=== PATIENT | female | born 1975 | race Caucasian/White ===

== ENCOUNTER 2022-05-20 13:40 | Inpatient (IN) | payer OTHER, SELFPAY ==
[2022-05-20] VITALS (7 sets, daily range): BP systolic 110–135; BP diastolic 61–93; PULSE 87–114; RESP 16–17; TEMP 36.3–37.2; O2SAT 97–100; BMI 29.2; BMI 23.8
--- NOTE | 2022-05-20 14:25 | EKG12_ITS ---
Test Reason : SUBS ABUSE Blood Pressure : / mmHG Vent. Rate : 107 BPM Atrial Rate : 107 BPM P-R Int : 128 ms QRS Dur : 084 ms QT Int : 330 ms P-R-T Axes : 073 031 018 degrees QTc Int : 440 ms Sinus tachycardia Nonspecific T wave abnormality Abnormal ECG Confirmed by OPAL LAMB, ANITRA ([id number]), technical editor SHANDA BENITEZ ([id number]) on 05/21/2022 2:43:36 PM Referred By: Confirmed By:ANITRA JOSEPH MD
--- NOTE | 2022-05-20 14:26 | EX.ED.SAOD ---
HPI History of Present Illness Chief Complaint: Substance Abuse Narrative Narrative: 46-year-old female, history of chronic back pain, employed as an COMPONENTS ENGINEER presents for opiate detox. She states she sees pain management and he is to take [place]/hydrocodone 7.5 mg 3 times a day. She states that she talk to her pain management doctor about weaning off of them and was supposed to take 7.5 mg twice a day then 5 mg at night. However, she finds herself looking at her watch and becoming jittery, trying to see when she can take her next dose. She has been overusing her prescriptions and is already out of the 7.5 mg because she has been taking them at least 5 times a day. She does not get another prescription refill for another 3 or 4 days, and states she is almost out. She started having detox and withdrawal symptoms on Thursday with diarrhea, crampy abdominal pain, and jitteriness. While she had mentioned that when she runs out, she may get suicidal thoughts because she wants to obtain more narcotics, she is not actively suicidal with a plan. PFSH PFSH Allergy/AdvReac Type Severity Reaction Status Date / Time codeine Allergy Hives Verified 05/20/22 13:58 Penicillins [PCN] Allergy Hives Verified 05/20/22 13:58 Social History Smoking Status: Never smoker ROS ROS ED ROS Narrative Constitutional: No fever, no chills. HEENT: No sore throat. No neck pain. No loss of vision. No rhinorrhea. Cardiovascular: No chest pain. No palpitations. No pedal edema. Respiratory: No cough, no shortness of breath. Abdominal: Diffuse, crampy abdominal pain. Positive nausea. No vomiting. Positive diarrhea Genitourinary: No dysuria. No hematuria. Musculoskeletal: No myalgias. No arthralgias. Neurologic: No headaches. No dizziness. No lightheadedness. Feeling jittery. Tremors. Skin: No rash. No change in color. Psychiatric: No depression. No anxiety. Suicidal thoughts when runs out of medication. EXAM Physical Exam Narrative Exam Narrative: Afebrile. Vital signs noted. HEENT: Normocephalic. Atraumatic. PERRL, EOMI. Neck soft and supple. No point tenderness or step off. Cardiovascular: Positive tachycardia no murmurs, rubs, or gallops appreciated. Respiratory: No tachypnea. Lungs clear to auscultation bilaterally. Gastrointestinal: Abdomen soft, nontender, with normoactive bowel sounds. No rebound or guarding. Neurological: Awake. Alert. Nonfocal, nonlateralizing. Tremors of bilateral lower extremities at rest, more of a nervous tic. Skin: No rash. Normal color. No pallor. Musculoskeletal: No pedal edema. Full range of motion extremities. Psychiatric: Denies suicidal ideation. Const Vital Signs: 05/20/22 13:41 05/20/22 14:50 05/20/22 15:05 Temperature 97.9 F Temperature Source Temporal Pulse Rate 113 H Respiratory Rate 16 17 Blood Pressure 135/93 H Blood Pressure Mean 107 Pulse Ox 98 97 Oxygen Delivery Method Airvo Room Air MDM MDM MDM Narrative Medical decision making narrative: As she had triggered suicide precautions in triage because of her voicing suicidal ideation when she runs out of medication, she was evaluated by case management/social work. It was not felt that she is actively suicidal and that is more situational when she runs out of her medication. Medical screening labs will be obtained. She states that she has already spoken with 180 and has a counselor lined up, but is here for detox for a few days. I obtained an EKG because of her tachycardia and interpreted it. Which shows sinus tachycardia in the 107 bpm without ectopy or acute ST changes. No STEMI. CBC was obtained and reviewed and she has normal white count of 6.5, hemoglobin normal at 12.9, platelet count normal at 259. I discussed the patient with Dr. Nam Ospina for admission to the medical surgical floor. Disposition is admit in stable condition. Lab Data Attestation: I reviewed the patient's lab results. Labs: Laboratory Results - last 24 hr 05/20/22 14:52 WBC 6.5 RBC 4.44 Hgb 12.9 Hct 39.5 MCV 89.0 MCH 29.1 MCHC 32.7 RDW Std Deviation 43.9 RDW Coeff of Aj 13.4 Plt Count 259 MPV 10.8 Immature Gran % (Auto) 0.300 Neut % (Auto) 59.4 Lymph % (Auto) 28.8 [place] % (Auto) 5.5 Eos % (Auto) 5.1 H Baso % (Auto) 0.9 Absolute Neuts (auto) 3.9 Absolute Lymphs (auto) 1.87 Nucleated RBC % 0 Discharge Plan Dx/Rx/DC Orders Clinical Impression: Opiate dependence, Desire for detoxification, Chronic back pain Disposition Disposition: Acute Care Hospital [facility]
[2022-05-20 14:59] LABS: Absolute Lymphocyte Count 1.87 X10^3/uL (0.83-4.51); Absolute Neutrophil Count 3.9 X10^3/uL (2.0-7.7); Basophil# 0.06 X10^3/uL; Basophil% 0.9 % (0-1); Eosinophil# 0.33 X10^3/uL; Eosinophils% 5.1 % (0-5); Hematocrit 39.5 % (37-47); Hemoglobin 12.9 g/dL (12.0-15.0); Lymphocyte # 1.87 X10^3/ul (0.83-4.51); Lymphocyte % 28.8 % (19-41); Mean Corp Hgb Conc 32.7 g/dL (32-36); Mean Corpuscular Hgb 29.1 pg (27.0-32.0); Mean Platelet Vol. 10.8 fl (6.2-12.0); Monocyte# 0.36 X10^3/uL; Monocyte% 5.5 % (0-10); NRBC Flagged by Analyzer 0 % (0-5); Neutrophil # 3.85 X10^3/uL (2.7-7.7); Neutrophil % 59.4 % (47-70); Platelet Count 259 K/mm3 (150-450); RBC Distribution Width CV 13.4 % (11.6-14.6); RBC Distribution Width SD 43.9 fl (35.1-43.9); Red Blood Count 4.44 M/mm3 (4.2-5.4); White Blood Count 6.5 K/mm3 (4.4-11.0)
[2022-05-20 15:14] LABS: ALB/GLOB Ratio 0.8 RATIO (0.9-2.4); AST(SGOT) 20 U/L (15-37); Alanine Aminotransfer ALT/SGPT 30 U/L (13-56); Albumin, Serum 3.3 g/dL (3.2-5.0); Alkaline Phosphatase 67 U/L (45-117); Anion Gap 9 (5-15); BUN 17 mg/dL (7-18); BUN/Creat Ratio 17.7 RATIO (10-20); Calcium,Total 8.6 mg/dL (8.5-10.1); Chloride 105 mmol/L (98-107); Creatinine, Serum 0.96 mg/dL (0.55-1.02); EST Glomerular Filtration Rate 67 mL/min (>60); Est Glom Filt Rate - Afr Amer 81 mL/min (>60); Estimated Creatinine Clearance 61.86 ml/min; Globulin 3.9 g/dL (2.2-4.2); Glucose 89 mg/dL (74-106); Potassium 3.5 mmol/L (3.5-5.1); Protein, Total 7.2 g/dL (6.4-8.2); Sodium Level 139 mmol/L (136-145)
--- NOTE | 2022-05-20 15:22 | CM.ED ---
? Social Work Psychiatric Assessment Reason for consult: Mental Health Informant(s): Patient and patient?s . SW gave the consent to speak to her in the presence of her , Issa. Chief Complaint: Patient said that she came to the ED as she was referred to the [facility]AMP program at [facility] by her counselor, Elsy Mcgee. Patient said that she has had ?terrible back pain? and been on hydrocodone for 3 years and subsequently has been on oxycodone. Patient said ?now I am abusing it and I don?t want to live like this?. Patient said that she has no more refills after the and she wants help to be ?done with this demon?. Patient said that she fantasizes about how to steal oxycodone and get more. Patient said that she has stolen oxycodone from her ?s parents and ?I don?t want to be a junkie?. 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 ? Marital/Social History: ? Living Situation: Patient resides in a house with her and 4 children (2 of the children are older and live outside the home) Support/Resources: Patient said that her supports are her husbands and 2 sisters and father. Patient said ?I have a good support team?. History: ?None Education and Employment History: Patient graduated from high school. 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 Patient said that she is ?undiagnosed dyslexia? and also has ADHD. 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 Mental Health Treatment/History: Patient reports she has a counselor, Elsy, who she sees weekly and has met 2times. Patient has seen a psychiatrist in the past. Patients PCP Connie Pratt prescribes Buprionion 150 mg, Vraylor and Trintellex. Patient reports one psych hospitalization in [facility] in 1999 following a suicide attempt. Triggers/Stressors: Patient reports no other issues or stressors except for the oxycodone abuse Coping Skills: Patient said that she ?keeps busy? and she ?leaves the house, shops with her sister and cleans the house?. Abuse Issues:? Denied ? Substance Abuse Hx:? Patient reports she has begun to take CBD oil, not prescribed, for 3x to help with the pain. Patient said that she has not taken the CBD oil daily. Denied any other drug or alcohol use. Risk to Self/Others: ? Suicidal:? Patient reports she has had thought about ?I want to be gone, want to disappear and don?t want to be here? when she can?t get the oxycodone. Patient reports past thoughts of ?I just want to be or when I don?t have the oxycodone?. Patient reports no current SI. Patient reports no plan regarding SI. Patient voiced that her SI thoughts are related to her not having the oxycodone and feeling of frustration. Patient said that she is future oriented as she is looking forward to being in a Bible study and bonding with her . Patient stated that her kendell is a protective factor. Patient said that she is not suicidal as ?too many people depend on me?. Patient said she had one suicide attempt in 1999, when she was hospitalized, as she had overdosed on pills. Comments: ? Homicidal:? denied Comments: ? Violence:? denied Comments: Mental Status Exam: ??? Orientation:? x4 ??? Memory:? Intact Appearance/General Behavior:? Disheveled but clean Mood/Affect: Anxious, moving throughout the assessment Communication Pattern:? Responds to questions Thought Process:? appropriate. General Intellectual Functioning:??? Average ? Judgment: Fair Insight:? Good Patient voiced no current SI and no plan. Patient voiced protective factors including her kendell and that ?too many people depend on me?. Patient voiced thoughts of SI when she was unable to secure her oxycodone. Patient also voiced frustration with her drug seeking behavior. Patient voices she will let staff know if she feels SI. At this time patient does not need inpatient psych or a sitter. SW updated MD Khan and agreed that patient does not need sitter or inpatient psych hospitalization. Plan: Detox through Ramp program Mayra CIFUENTES
[2022-05-20 15:27] LABS: Amphetamine Urine VISTA NEGATIVE (<1000 ng/mL); Barbiturate Urine VISTA NEGATIVE (< 200 ng/mL); Benzodiazepine Urine VISTA NEGATIVE (< 200 ng/mL); Cocaine Urine VISTA NEGATIVE (< 300 ng/mL); Ecstacy Urine VISTA POSITIVE (< 500 ng/mL); Methadone Urine VISTA NEGATIVE (< 300 ng/mL); PCP Urine VISTA NEGATIVE (< 25 ng/mL); THC Urine VISTA POSITIVE (< 50 ng/mL); Vista UDS pH Range 5
[2022-05-20 15:36] LABS: Alcohol, Blood (Medical)-Serum < 3.0 mg/dL
[2022-05-20 15:45] LABS: Internal QC Validated? YES +Cl - CLEAR BKGD; Pregnancy, Serum, hCG Quali. NEGATIVE Negative
--- NOTE | 2022-05-20 16:18 | HP.PCM.HOS_ITS ---
HPI - General General Date of Admission: 05/20/22 Date of Service: 05/20/22 Chief Complaint: Acute opiate withdrawal, opiate addiction HPI Narrative HANNAH EDOUARD, is a 46 F who presents to the emergency room at [facility] requesting services for opiate addiction and opiate withdrawal. Patient is being seen by pain management in [facility] and takes 7.5 mg Vicodin on a routine basis, she has been overusing the Vicodin for quite some time and has decided that she wants to stop all narcotics. Patient has a history of low back pain which is chronic, she has stated to me that this has been looked into and it does not appear that she needs any surgery to correct any problem that would cause her back pain. Patient does state that she takes her daughters ADHD medications gjygufzrhmon-[id number]-cty denies any chronic alcohol use, she denies any use of street drugs. Patient is in the ER with her at the time my examination. Patient states she has a history of gastric bypass in the past and she was told not to take any nonsteroidal anti-inflammatory medications. At the time my examination, patient is complaining of extreme nervousness, she is fidgeting during my exam and she answers questions appropriately however, she does not appear to be confused or diaphoretic. Patient had labs drawn in the emergency room, CBC was unremarkable, chemistry panel was unremarkable, and talk screen was positive for urine opiates, ecstasy, and cannabinoids. Patient will be admitted to [place] [id number], she will be seen by addiction social sciences department chair, orders will be entered using the opiate detox order set and general order set for addiction patients. [facility] Medical History (Updated 05/20/22 @ 15:39 by Pooja Eaton) Anxiety Asthma Back pain Depression Hernia Nausea & vomiting Spondylosis Home Medications bupropion HCl 150 mg tablet,12 hr sustained-release 150 mg PO BID mood 05/20/22 [History Last Taken 05/20/22] cariprazine 1.5 mg capsule (Vraylar) 1.5 mg PO DAILY mood 05/20/22 [History Last Taken 05/20/22] drospiren-e.estrad-l.mefol 3 mg-0.02 mg-0.451 mg(24)/0.451 mg(4)tablet 1 tab PO QHS control 05/20/22 [History Last Taken 05/19/22] methocarbamol 500 mg tablet 500 mg PO TID PRN PRN Spasms 05/20/22 [History Last Taken 05/20/22] ondansetron 4 mg disintegrating tablet 4 mg PO Q6H PRN PRN Nausea 05/20/22 [History Last Taken 05/20/22] pregabalin 50 mg capsule 50 mg PO BID back pain 05/20/22 [History Last Taken 05/20/22] vortioxetine 10 mg tablet (Trintellix) 10 mg PO DAILY mood 05/20/22 [History Last Taken 05/20/22] Allergy/AdvReac Type Severity Reaction Status Date / Time codeine Allergy Hives Verified 05/20/22 13:58 Penicillins [PCN] Allergy Hives Verified 05/20/22 13:58 Surgical History (Updated 05/20/22 @ 15:32 by Pooaj Eaton) Gastric bypass status for obesity History of cholecystectomy Social History Smoking Status: Never smoker ROS ROS Narrative Patient complains of extreme restlessness and nervousness Constitutional Constitutional: Reports malaise; Denies anorexia, change in weight, chills, fever(s), night sweats or weakness Eyes Eyes: Denies blurry vision, change in vision, discharge from eye(s) or eye pain ENT HEENT: Denies dysphagia, ear pain or headache(s) Cardiovascular Cardiovascular: Denies chest pain, claudication, dyspnea on exertion, edema, lightheadedness, orthopnea, palpitations or paroxysmal nocturnal dyspnea Respiratory/Chest Respiratory/Chest: Denies cough, dyspnea, hemoptysis, productive cough, shortness of breath at rest or shortness of breath with exertion Gastrointestinal Gastrointestinal: Denies abdominal pain, coffee ground emesis, constipation, diarrhea, dyspepsia, hematemesis, hematochezia, melena, nausea or vomiting Genitourinary Genitourinary: Denies difficulty urinating, dysuria, hematuria, nocturia, u rinary frequency, urinary hesitancy, urinary incontinence or urinary urgency Musculoskeletal Musculoskeletal: Reports back pain and myalgias; Denies joint pain, joint stiffness, joint swelling or neck pain Neurologic Neurologic: Denies abnormal gait, abnormal speech, confusion, disequilibrium, dizziness, focal weakness, headache(s), loss of vision, numbness, other visual disturbances, paresthesias, syncope or tingling Psychiatric Psychiatric: Reports anxiety and other Details: Patient complains of extreme restlessness and nervousness at this time, she has a history of chronic depression and takes daily medication. ; Denies cognitive impairment, depression, irritability, mood swings or suicidal ideation Endocrine Endocrinology: Denies change in body appearance, cold intolerance, excessive sweating, heat intolerance, polydipsia or polyuria Hematologic/Lymphatic Hematologic/Lymphatic: Denies none, anemia, easy bleeding, easy bruising or lymphadenopathy Allergic/Immunologic Allergic/Immunologic: Denies rhinitis, urticaria, eczemia or asthma Vital Signs Vital Signs Vital Signs: 05/20/22 13:41 05/20/22 14:50 05/20/22 15:05 Temperature 97.9 F Temperature Source Temporal Pulse Rate 113 H Respiratory Rate 16 17 Blood Pressure 135/93 H Blood Pressure Mean 107 Pulse Ox 98 97 Oxygen Delivery Method Airvo Room Air Weight Weight: 74.843 kg Body Mass Index (BMI) 29.2 Physical Exam Narrative Patient is alert and appropriate, she appears extremely restless and nervous, she is not agitated, she is appropriate when asked questions Const alert, oriented x3, no apparent distress, average body habitus and healthy appearing General Appearance: cooperative, well kempt and well developed Orientation / Consciousness: awake, oriented to person, oriented to place and oriented to time HEENT normocephalic, head/scalp atraumatic, hearing grossly normal bilaterally and moist oral mucous membranes Eyes PERRL, EOMs intact bilaterally and conjunctivae normal Neck supple, no JVD, thyroid normal and no carotid bruits General: trachea midline Resp normal respiratory effort, no retractions, no use of accessory muscles and clear to auscultation bilaterally Auscultation: Negative for rales, rhonchi or wheezes Cardio regular rate, regular rhythm, S1 normal heart sound, S2 normal heart sound, no murmurs, no rub and no gallops GI normal to inspection, nondistended, normoactive bowel sounds, soft to palpation, non-tender and non-distended Extremity no clubbing, cyanosis or edema Skin no rashes or lesions noted General Skin Exam: no breakdown Neuro oriented x3, CN's II-XII intact bilaterally, no focal motor deficits and no sensory deficits noted Sensorium / Orientation: awake, alert, oriented to person, oriented to place and oriented to time Speech: speech normal Psych affect normal Results Lab / Micro Data Result Diagrams: 05/20/22 14:52 05/20/22 14:52 Labs: Laboratory Results - last 24 hr 05/20/22 14:52: WBC 6.5, RBC 4.44, Hgb 12.9, Hct 39.5, MCV 89.0, MCH 29.1, MCHC 32.7, RDW Std Deviation 43.9, RDW Coeff of Aj 13.4, Plt Count 259, MPV 10.8, Immature Gran % (Auto) 0.300, Neut % (Auto) 59.4, Lymph % (Auto) 28.8, [place] % (Auto) 5.5, Eos % (Auto) 5.1 H, Baso % (Auto) 0.9, Absolute Neuts (auto) 3.9, Absolute Lymphs (auto) 1.87, Nucleated RBC % 0 05/20/22 14:52: Sodium 139, Potassium 3.5, Chloride 105, Carbon Dioxide 25.0, Anion Gap 9, BUN 17, Creatinine 0.96, Estim Creat Clear Calc 61.86, Est GFR ( RD) Af Amer 81, Est GFR (MDRD) Non-Af 67, BUN/Creatinine Ratio 17.7, Glucose 89, Calcium 8.6, Total Bilirubin 0.30, AST 20, ALT 30, Alkaline Phosphatase 67, Total Protein 7.2, Albumin 3.3, Globulin 3.9, Albumin/Globulin Ratio 0.8 L 05/20/22 14:52: Ethyl Alcohol < 3.0 05/20/22 14:52: Serum , Qual NEGATIVE 05/20/22 15:03: Urine Opiates Screen POSITIVE H, Urine Methadone Screen NEGATIVE, Ur Barbiturates Screen NEGATIVE, Ur Phencyclidine Scrn NEGATIVE, Ur Amphetamines Screen NEGATIVE, MDMA (Ecstasy) Screen POSITIVE H, U Benzodiazepines Scrn NEGATIVE, Urine Cocaine Screen NEGATIVE, U Cannabinoids Screen POSITIVE H, Ur Drug Screen Comment Assessment & Plan Assessment/Plan (1) Desire for detoxification: PLAN: Plan 1. Acute opiate withdrawal-patient will be admitted to [facility] 3, orders were entered using the opiate detox order sets. Patient will be seen by addiction social sciences department chair concerning follow-up as an outpatient. #2 chronic opiate abuse-patient will need follow-up upon discharge from the hospital, she will be seen by addiction social sciences department chair #3 chronic back pain-this appears to be musculoskeletal in nature, she will need follow-up with her pain management physician for further care upon discharge #4 chronic depression-patient will remain on her present medications #5 Positive MDMA on tox screen-I do not know if this is related to her use of methylphenidate from her daughter's medication, patient denied any illicit drug abuse such as street drug usage Total clinical time spent by myself addressing the patient's medical issues, reviewing the patient's medical data, and collaborating with patient's care team: 55 minutes Charges/Coding Visit Charges Inpatient E&M: 25148 Init Hosp L2
[2022-05-20] MEDS: Methocarbamol 750 MG Tablet 1500 MG PO (17:56)
[2022-05-20] MEDS: Buprenorphine HCl 2 MG TAB.SUBL SL (17:56)
[2022-05-20] MEDS: cloNIDine HCl 0.1 MG Tablet PO (17:56)
[2022-05-20] MEDS: Ondansetron 8 MG Tablet PO (21:29)
[2022-05-20] MEDS: Acetaminophen 500 MG Tablet PO (21:29)
[2022-05-20] MEDS: Pregabalin 50 MG Capsule PO (21:30)
[2022-05-20] MEDS: traZODone 100 MG Tablet PO (21:30)
[2022-05-20] MEDS: buPROPion (SR) 150 MG Tablet.SA PO (21:30)
[2022-05-20] MEDS: hydrOXYzine PAM 25 MG Capsule 50 MG PO (23:08)
[2022-05-21] MEDS: Buprenorphine HCl 2 MG TAB.SUBL SL ×3 (02:00→17:54)
[2022-05-21 05:00] VITALS: BP 89/52; PULSE 71; RESP 18; TEMP 36.3; O2SAT 94
[2022-05-21] MEDS: Ondansetron 8 MG Tablet PO ×2 (05:36→14:34)
[2022-05-21] MEDS: Methocarbamol 750 MG Tablet 1500 MG PO ×2 (05:37→17:59)
[2022-05-21] MEDS: Acetaminophen 500 MG Tablet PO ×3 (05:37→17:59)
--- NOTE | 2022-05-21 07:37 | PN.HOSP_ITS ---
Subjective Subjective Feels ill. Objective Data Objective Data Vital Signs: Vital Signs Temp Pulse Resp BP Pulse Ox O2 Del Method 36.3 C L 71 18 89/52 L 94 Room Air 05/21/22 05:00 05/21/22 05:00 05/21/22 05:00 05/21/22 05:00 05/21/22 05:00 05/21/22 05:00 Oxygen Delivery Method Room Air Weight: 61.144 kg Body Mass Index (BMI) 23.8 Intake & Output: Intake and Output for Last 24 Hours 05/19/22 05/20/22 05/21/22 23:59 23:59 23:59 Intake Total 1000 / 1000 Balance 1000 / 1000 Lab / Micro Data Result Diagrams: 05/20/22 14:52 05/20/22 14:52 Labs: Laboratory Results - last 24 hr 05/20/22 14:52: WBC 6.5, RBC 4.44, Hgb 12.9, Hct 39.5, MCV 89.0, MCH 29.1, MCHC 32.7, RDW Std Deviation 43.9, RDW Coeff of Aj 13.4, Plt Count 259, MPV 10.8, Immature Gran % (Auto) 0.300, Neut % (Auto) 59.4, Lymph % (Auto) 28.8, [place] % (Auto) 5.5, Eos % (Auto) 5.1 H, Baso % (Auto) 0.9, Absolute Neuts (auto) 3.9, Absolute Lymphs (auto) 1.87, Nucleated RBC % 0 05/20/22 14:52: Sodium 139, Potassium 3.5, Chloride 105, Carbon Dioxide 25.0, Anion Gap 9, BUN 17, Creatinine 0.96, Estim Creat Clear Calc 61.86, Est GFR (MDRD) Af Amer 81, Est GFR (MDRD) Non-Af 67, BUN/Creatinine Ratio 17.7, Glucose 89, Calcium 8.6, Total Bilirubin 0.30, AST 20, ALT 30, Alkaline Phosphatase 67, Total Protein 7.2, Albumin 3.3, Globulin 3.9, Albumin/Globulin Ratio 0.8 L 05/20/22 14:52: Ethyl Alcohol < 3.0 05/20/22 14:52: Serum , Qual NEGATIVE 05/20/22 15:03: Urine Opiates Screen POSITIVE H, Urine Methadone Screen NEGATIVE, Ur Barbiturates Screen NEGATIVE, Ur Phencyclidine Scrn NEGATIVE, Ur Amphetamines Screen NEGATIVE, MDMA (Ecstasy) Screen POSITIVE H, U Benzodiazepines Scrn NEGATIVE, Urine Cocaine Screen NEGATIVE, U Cannabinoids Screen POSITIVE H, Ur Drug Screen Comment Physical Exam Const alert and no apparent distress HEENT head/scalp atraumatic and moist oral mucous membranes Psych affect normal Assessment & Plan Assessment/Plan (1) Desire for detoxification: PLAN: Acute opiate withdrawal-patient will be admitted to [place] [address], orders were entered using the opiate detox order sets. Patient will be seen by addiction manager social work concerning follow-up as an outpatient. PLAN: Plan Chronic conditions: * chronic opiate abuse-patient will need follow-up upon discharge from the hospital, she will be seen by addiction manager social work * chronic back pain-this appears to be musculoskeletal in nature, she will need follow-up with her pain management physician for further care upon discharge * chronic depression-patient will remain on her present medications * Positive MDMA on tox screen-I do not know if this is related to her use of methylphenidate from her daughter's medication, patient denied any illicit elijah g abuse such as street drug usage Charges/Coding Visit Charges Inpatient E&M: 27791 [facility] Hosp L1
[2022-05-21 09:26] VITALS: BP 84/51; PULSE 80; RESP 18; TEMP 37.7; O2SAT 100
[2022-05-21] MEDS: CARIPRAZINE HCL 1.5 MG CAPSULE PO (10:52)
[2022-05-21] MEDS: VORTIOXETINE HYDROBROMIDE 10 MG TABLET PO (10:52)
[2022-05-21] MEDS: Pregabalin 50 MG Capsule PO ×2 (10:59→21:08)
[2022-05-21] MEDS: buPROPion (SR) 150 MG Tablet.SA PO ×2 (10:59→21:08)
--- NOTE | 2022-05-21 11:06 | ADDICTION ---
TW met with pt to complete ASAM, AUDIT, DUDIT, and MSE and begin D/C Planning. TW offered education about addiction in the brain and how it occurs. TW provided pt with [employer] Deconstructed book and the Addiction 101 workbook per her request. TW spent time with pt looking up her insurance information and finding an addiction treatment provider in network. TW reached out to and called [id number] doctor Yogi Block with [facility] on file for [facility]. There was no answer, TW left a VM with her work number to have [employer] return the call. Pt is interested in receiving Vivitrol, which the [facility] offers. No transportation needs noted at this time. D/C Plan will be completed once TW hears back from [employer] regarding addiction treatment services.
[2022-05-21 11:30] VITALS: BP 95/77; PULSE 87; RESP 18; TEMP 36.6; O2SAT 100
[2022-05-21 15:15] VITALS: BP 92/59; PULSE 66; RESP 16; TEMP 36.4; O2SAT 100
[2022-05-21] MEDS: hydrOXYzine PAM 25 MG Capsule 50 MG PO (17:59)
[2022-05-21 20:03] VITALS: PULSE 80
[2022-05-21 20:09] VITALS: BP 92/60; PULSE 83; RESP 12; TEMP 36.9; O2SAT 97
[2022-05-22] MEDS: hydrOXYzine PAM 25 MG Capsule 50 MG PO ×3 (01:59→19:52)
[2022-05-22] MEDS: Buprenorphine HCl 2 MG TAB.SUBL SL ×3 (01:59→17:31)
[2022-05-22 02:05] VITALS: BP 96/65; PULSE 81; RESP 18; TEMP 37.1; O2SAT 100
[2022-05-22] MEDS: Dicyclomine 10 MG Capsule 20 MG PO ×2 (02:18→19:53)
[2022-05-22] MEDS: Methocarbamol 750 MG Tablet 1500 MG PO ×3 (02:18→19:52)
[2022-05-22] MEDS: Ondansetron 8 MG Tablet PO ×3 (02:18→21:14)
[2022-05-22] MEDS: Acetaminophen 500 MG Tablet PO ×3 (07:36→19:52)
--- NOTE | 2022-05-22 07:54 | PN.HOSP_ITS ---
Subjective Subjective Feels achy all over. Feels like her throat is closing and requesting albuterol MDI. Objective Data Objective Data Vital Signs: Vital Signs Temp Pulse Resp BP Pulse Ox O2 Del Method 37.1 C 81 18 96/65 100 Room Air 05/22/22 02:05 05/22/22 02:05 05/22/22 02:05 05/22/22 02:05 05/22/22 02:05 05/22/22 02:05 Oxygen Delivery Method Room Air Weight: 61.144 kg Body Mass Index (BMI) 23.8 Intake & Output: Intake and Output for Last 24 Hours 05/20/22 05/21/22 05/22/22 23:59 23:59 23:59 Intake Total 1000 / 1000 Balance 1000 / 1000 Lab / Micro Data Result Diagrams: 05/20/22 14:52 05/20/22 14:52 Physical Exam Const alert Constitutional Narrative: uncomfortable. up in bed. non-toxic. Resp normal respiratory effort, no retractions, no use of accessory muscles and clear to auscultation bilaterally Cardio regular rate, regular rhythm, S1 normal heart sound and S2 normal heart sound GI normal to inspection, nondistended, normoactive bowel sounds, soft to palpation, non-tender and non-distended Assessment & Plan Assessment/Plan (1) Desire for detoxification: PLAN: Acute opiate withdrawal-patient will be admitted to [facility] 3, orders we re entered using the opiate detox order sets. Patient will be seen by addiction social service coordinator concerning follow-up as an outpatient. PLAN: Plan Chronic conditions: * chronic opiate abuse-patient will need follow-up upon discharge from the hospital, she will be seen by addiction social service coordinator * chronic back pain-this appears to be musculoskeletal in nature, she will need follow-up with her pain management physician for further care upon discharge * chronic depression-patient will remain on her present medications * Positive MDMA on tox screen- Charges/Coding Visit Charges Inpatient E&M: 94777 [facility] Hosp L1
[2022-05-22 08:08] VITALS: BP 99/66; PULSE 101; RESP 16; TEMP 37.2; O2SAT 94
[2022-05-22] MEDS: buPROPion (SR) 150 MG Tablet.SA PO ×2 (09:33→21:14)
[2022-05-22] MEDS: VORTIOXETINE HYDROBROMIDE 10 MG TABLET PO (09:34)
[2022-05-22] MEDS: CARIPRAZINE HCL 1.5 MG CAPSULE PO (09:34)
[2022-05-22] MEDS: Pregabalin 50 MG Capsule PO ×2 (09:36→21:15)
[2022-05-22 13:44] VITALS: BP 95/54; PULSE 88; RESP 16; TEMP 36.7; O2SAT 100
[2022-05-22 19:38] VITALS: BP 91/59; PULSE 78; PULSE 80; RESP 16; TEMP 37.1; O2SAT 100
[2022-05-22] MEDS: traZODone 100 MG Tablet PO (21:14)
[2022-05-23 05:24] VITALS: BP 95/64; PULSE 76; RESP 18; TEMP 37; O2SAT 100
[2022-05-23] MEDS: Buprenorphine HCl 2 MG TAB.SUBL SL (05:34)
[2022-05-23] MEDS: hydrOXYzine PAM 25 MG Capsule 50 MG PO (05:34)
[2022-05-23] MEDS: Methocarbamol 750 MG Tablet 1500 MG PO ×2 (05:34→13:22)
[2022-05-23] MEDS: Dicyclomine 10 MG Capsule 20 MG PO (05:35)
[2022-05-23] MEDS: Acetaminophen 500 MG Tablet PO ×2 (07:43→13:22)
[2022-05-23 07:45] VITALS: PULSE 65; RESP 18; O2SAT 100
[2022-05-23] MEDS: Albuterol 2.5 MG/3 ML VIAL.NEB. INHALATION (07:47)
[2022-05-23 08:07] VITALS: BP 102/68; PULSE 86; RESP 16; TEMP 36.6; O2SAT 92
[2022-05-23] MEDS: Pregabalin 50 MG Capsule PO (08:55)
[2022-05-23] MEDS: CARIPRAZINE HCL 1.5 MG CAPSULE PO (08:56)
[2022-05-23] MEDS: VORTIOXETINE HYDROBROMIDE 10 MG TABLET PO (08:56)
[2022-05-23] MEDS: buPROPion (SR) 150 MG Tablet.SA PO (08:56)
--- NOTE | 2022-05-23 10:05 | PCM.DC ---
Discharge Instructions Diet Discharge Diet: No restrictions Follow Up Care Please Follow Up With: [facility] Test Results: Test results from this visit will be discussed in further detail at your follow-up appointment, if applicable. Discharge Plan Admission Admit Date/Time: 05/20/22 16:11 Primary Reason for Your Visit: opiate withdrawal Attending Provider: Zeferino Smith Primary Care Provider: Zahra Pratt Consulting Providers: Nam Ospina Discharge Orders/Prescriptions Prescriptions: New hydroxyzine pamoate 25 mg Capsule 50 mg PO Q6H PRN PRN (Reason: mild anxiety) Qty: 12 0RF Continued methocarbamol 500 mg tablet 500 mg PO TID PRN PRN (Reason: Spasms) Label Comments: Take 1 tablet by mouth 3 times daily. bupropion HCl 150 mg tablet sustained-release 12 hr 150 mg PO BID Label Comments: Take 1 tablet by mouth every 12 hours. ondansetron 4 mg tablet,disintegrating 4 mg PO Q6H PRN PRN (Reason: Nausea) Label Comments: place 1 tablet on tongue and allow to dissolve every 6 hours as needed for Nausea / Vomiting. pregabalin 50 mg capsule 50 mg PO BID Label Comments: Take 1 capsule by mouth 2 times daily. drospirenone-e.estradiol-lm.FA 3-0.02-0.451 mg (24) (4) tablet 1 tab PO QHS Label Comments: TAKE 1 TABLET BY MOUTH ONCE DAILY. TAKE CONTINUOUSLY WITHOUT MENSES Trintellix 10 mg tablet 10 mg PO DAILY Label Comments: Take 1 tablet by mouth daily. Vraylar 1.5 mg capsule 1.5 mg PO DAILY Label Comments: Take 1 capsule by mouth daily. Proair Digihaler 90 mcg/actuation Aero Powdr Breath Act W/Sensor 180 mcg INHALATION Q6H PRN (Reason: Shortness Of Breath) Referrals / Follow Up: Zahra Pratt MD [Primary Care Provider] - NOT,DEFINED [Non-Staff] - Disposition Disposition (needs filled in before D/C Order can be placed): Home, Self Care
--- NOTE | 2022-05-23 11:10 | DS.PCM_ITS ---
Providers Date of Admission: 05/20/22 Primary Care Physician: Dr. Zahra Pratt MD Reason For Visit: ACUTE OPIATE WITHDRAWAL, OPIATE ABUSE Diagnosis Discharge Diagnosis (1) Desire for detoxification: Status: Acute Plan: Acute opiate withdrawal-patient will be admitted to [place] [id number], orders were entered using the opiate detox order sets. Patient will be seen by addiction social organization professor concerning follow-up as an outpatient. Plan Chronic conditions: * chronic opiate abuse-patient will need follow-up upon discharge from the hospital, she will be seen by addiction social organization professor * chronic back pain-this appears to be musculoskeletal in nature, she will need follow-up with her pain management physician for further care upon discharge * chronic depression-patient will remain on her present medications * Positive MDMA on tox screen- Medications at Discharge Home Medications bupropion HCl 150 mg tablet,12 hr sustained-release 150 mg PO BID mood 05/20/22 cariprazine 1.5 mg capsule (Vraylar) 1.5 mg PO DAILY mood 05/20/22 drospiren-e.estrad-l.mefol 3 mg-0.02 mg-0.451 mg(24)/0.451 mg(4)tablet 1 tab PO QHS control 05/20/22 methocarbamol 500 mg tablet 500 mg PO TID PRN PRN Spasms 05/20/22 ondansetron 4 mg disintegrating tablet 4 mg PO Q6H PRN PRN Nausea 05/20/22 pregabalin 50 mg capsule 50 mg PO BID back pain 05/20/22 vortioxetine 10 mg tablet (Trintellix) 10 mg PO DAILY mood 05/20/22 albuterol sulfate 90 mcg/actuation breath activated powder inhaler,sensor (Proair Digihaler) 180 mcg inhalation Q6H PRN Shortness Of Breath 05/23/22 hydroxyzine pamoate 25 mg capsule 50 mg PO Q6H PRN PRN mild anxiety #12 caps 0 05/23/22 Hospital Course Operations None Procedures None Summary of Care Provided Minutes Spent on Discharge: 28 Weight / BMI Weight Weight: 61.144 kg Body Mass Index (BMI) 23.8 ABG / Lab / Microbiology Data Result Diagrams: 05/20/22 14:52 05/20/22 14:52 D/C Instructions Discharge Diet: No restrictions Please Follow Up With: [facility] Info Meaningful Use Diagnoses (Choose all that apply): None applicable Discharge Plan Admission Admit Date/Time: 05/20/22 16:11 Primary Reason for Your Visit: opiate withdrawal Attending Provider: Zeferino Smith Primary Care Provider: Zahra Pratt Consulting Providers: Nam Ospina Discharge Orders/Prescriptions Prescriptions: New hydroxyzine pamoate 25 mg Capsule 50 mg PO Q6H PRN PRN (Reason: mild anxiety) Qty: 12 0RF Continued methocarbamol 500 mg tablet 500 mg PO TID PRN PRN (Reason: Spasms) Label Comments: Take 1 tablet by mouth 3 times daily. bupropion HCl 150 mg tablet sustained-release 12 hr 150 mg PO BID Label Comments: Take 1 tablet by mouth every 12 hours. ondansetron 4 mg tablet,disintegrating 4 mg PO Q6H PRN PRN (Reason: Nausea) Label Comments: place 1 tablet on tongue and allow to dissolve every 6 hours as needed for Nausea / Vomiting. pregabalin 50 mg capsule 50 mg PO BID Label Comments: Take 1 capsule by mouth 2 times daily. drospirenone-e.estradiol-lm.FA 3-0.02-0.451 mg (24) (4) tablet 1 tab PO QHS Label Comments: TAKE 1 TABLET BY MOUTH ONCE DAILY. TAKE CONTINUOUSLY WITHOUT MENSES Trintellix 10 mg tablet 10 mg PO DAILY Label Comments: Take 1 tablet by mouth daily. Vraylar 1.5 mg capsule 1.5 mg PO DAILY Label Comments: Take 1 capsule by mouth daily. Proair Digihaler 90 mcg/actuation Aero Powdr Breath Act W/Sensor 180 mcg INHALATION Q6H PRN (Reason: Shortness Of Breath) Referrals / Follow Up: Zahra Pratt MD [Primary Care Provider] - NOT,DEFINED [Non-Staff] - Disposition Disposition (needs filled in before D/C Order can be placed): Home, Self Care Charges/Coding Visit Charges Inpatient E&M: 30800 Dis[facility] Hosp
== END 2022-05-23 13:45 | disposition home or self-care (01) | DRG 897 ==
LOC: ED 15:06 → MS3 05-21 06:08
PROVIDERS: Admitting Provider Internal Medicine; Emergency Provider Emergency Medicine; PCP Family Medicine
DX: F11.23 Opioid dependence with withdrawal (principal); F32.A Depression, unspecified; M54.9 Dorsalgia, unspecified; G89.29 Other chronic pain; Z79.899 Other long term (current) drug therapy
CPT/HCPCS: 36415; 80053; 80307; 82077; 84703; 85025; 93005; 94640; 97802; 99284; 99406